=== PATIENT | male | born 1950 | race Caucasian/White ===

== ENCOUNTER 2019-12-24 09:29 | Day surgery (SDC) | payer OTHER ==
--- OUTSIDE RECORDS SUMMARY | 2019-12-24 09:35 | XMS REPORT | Continuity of Care Document ---
:1950 Author Organization [facility] t Address [address] [place] [address] Care Team Providers Name Role Phone Unavailable Unavailable Unavailable Payers Payer Name Policy Type Policy Number Effective Date Expiration Date S ource Problems This patient has no known problems. Allergies, Adverse Reactions, Alerts Allergy Allergy Status Severity Reaction(s) Onset Inactive Treating Comm ents Source Name Type Date Date Clinician hydrocod DA Active U [facility] one 09-21 [place] 00:00: [facility] 00 are [facility] Medications This patient has no known medications. Procedures This patient has no known procedures. Results Test Description Test Time Test Comments Results Result [facility] e Comments SURGICAL 2019-10-01 SPECIMENS 15:07:00 RUN DATE: 10/01/19 [facility] - LAB PAGE 1 RUN TIME: 1507 Specimen Inquiry RUN USER: INTERFACE PATIENT: MONICA SAGASTUME LOC: Rod5N POD B U #: [id number] AGE/SX: 69/M ROOM: [facility] RE09/28/19REG DR: Franklin Brown MD : 51 BED: 1 DIS: 09/30/19 STATUS: DIS IN TLOC: SPEC #: [id number] RECD: 09/28/19 STATUS: CONNIE REQ #: [id number] SHINE: 09/28/[address]: Franklin Brown MD ENTERED: 09/28/191648 SP TYPE: SURG OTHR DR: ORDERED: PATHGM4/4, PATHGM6, PATH SPEC, H E STAIN/5, FROZEN EA ADDTL, FROZEN SECT , GMS/2 HISTOLOGY: TISSUE ID BLK PCS JOAN LEV / PROCEDURE DISPOSITION ____ ___ ___ ___ ___ OMENTUM A 2 1 RECTAL BX B 1 1 OMENTUM C 4 1 OMENTUM D 3 1 RECTAL BX E 35 1 TISSUES: A. OMENTUM BIOPSY - Omental Biopsy (Frozen) B. RECTAL BX - Spenic Node (Frozen) C. OMENTUM BIOPSY - Messenteric Biopsy (Frozen) D. OMENTUM BIOPSY - Omentum(Permanent) E. RECTAL BX - Rectal Cancer (Permanent) CLINICAL HISTORY Rectal Cancer FINAL DIAGNOSIS A-OMENTUM, BIOPSY: - Omentum with fibrosis and chronic inflammation. - Negative for malignancy. B-SPLENIC NODULE, BIOPSY: - Dense fibrous tissue, suggestive of scar. - GMS stain negative for fungal elements. - Negative for malignancy. C-MESENTERY, BIOPSY: - Benign adipose tissue with fat necrosis. - GMS stain negative for fungal elements. - One benign lymph node. - Negative for malignancy. D-OMENTUM, BIOPSY: - Omentum with fibrosis and chronic inflammation. - Negative for malignancy. E-COLON, RECTOSIGMOID, LOW ANTERIOR RESECTION: CONTINUED ON NEXT PAGE RUN DATE: 10/01/19 [facility] - LAB PAGE 2 RUN TIME: 1507 Specimen Inquiry RUN USER: INTERFACE SPEC #: [id number] PATIENT: MONICA SAGASTUME #[id number] (Continued) --- FINAL DIAGNOSIS (Continued) - Invasive well-differentiated adenocarcinoma. - Straddles the anterior peritoneal reflection. - 6.0 cm in greatest dimension. - Tumor invades through the muscularis propria into pericolorectal adipose tissue. - Margins, negative for carcinoma or dysplasia, 0.5 cm from open proximal margin. - Negative for lymph vascular invasion. - Thirty lymph nodes, negative for metastatic carcinoma (0/30). - Anastomotic rings, unremarkable colonic mucosa, negative for dysplasia or malignancy. - Immunohistochemistry for MMR proteins will be performed and results reported in an addendum. INTRAOPERATIVE DIAGNOSIS AFS1-FSA2: Omentum, biopsy: - Adipose tissue with fibrosis and inflammation, negative for metastatic carcinoma on suboptimal sections. BFS1: SPLENIC NODULE, EXCISION: - Fibrosis and inflammation, negative for metastatic carcinoma. CFS1: MESENTERY, BIOPSY: - Adipose tissue with fibrosis and inflammation, negative for metastatic carcinoma on suboptimal sections. These results were reported to Dr. Brown at 10:[address] Gray. GROSS DESCRIPTION A-OMENTUM BIOPSY: Received fresh for intraoperative consultation and labeled "omentum biopsy" are three portions of phillips-yellow adipose tissue (2.5 x 1.5 x 0.5 cm, 1.5 x 1.0 x 0.5 cm and 1.0 x 1.0 x 0.3 cm). The first portion is bisected to reveal lobulated yellow adipose tissue with no lesions grossly identified. One touch prep is made. The specimen is entirely submitted for frozen section in cassette FSA1. The second and third portions of adipose tissue are unremarkable lobulated adipose tissue. One touch prep is made, and these two specimens are entirely submitted in FSA2. B-SPLENIC NODULE: Received fresh for intraoperative consultation and labeled "splenic nodule" is a nodular portion of soft tissue measuring 0.2 cm in diameter. One touch prep is made, and the specimen is entirely submitted for frozen section in cassette FSB1. C-MESENTERIC BIOPSY: Received fresh for intraoperative consultation and labeled "mesenteric biopsy" is a single portion of yellow lobulated adipose tissue (3.0 x 2.0 x 0.7 cm). The specimen is sectioned to reveal vessels with an area of nodularity surrounding the vessel. The area is submitted for frozen section in FSC1. The remainder of the specimen is submitted for permanent in casette C2-C4. CONTINUED ON NEXT PAGE RUN DATE: 10/01/19 [facility] - LAB PAGE 3 RUN TIME: 1507 Specimen Inquiry RUN USER: INTERFACE SPEC #: [id number] PATIENT: MONICA SAGASTUME #[id number] (Continued) --- GROSS DESCRIPTION (Continued) D-OMENTUM: Received in formalin labeled "omentum" is a portion of lobulated phillips-yellow adipose tissue (1.0 x 2.0 x 0.5 cm). There is a firm phillips-pink nodular area that measures 0.3 cm in diameter. Additionally, there is an ill-defined area of phillips-white fibrosis which measures 1.6 x 0.6 cm. No other masses or lesions are seen. The specimen is entirely submitted. Section Code: D1, nodule and area of fibrosis D2-D3, remainder of specimen E. Received in formalin and labeled "rectal cancer" is a segment of upper rectum/colon (6.0 cm length x 3.0 cm diameter) with attached fat and blood vessels (26 cm length x 2.5 cm x 1.0 cm). There is a small portion of attached bowel to the fat (2.5 x 1.0 cm). The specimen is received with the proximal end opened and the distal end stapled. Located 0.3 cm from the open margin and 3.0 cm from the staple line margin near the level of the peritoneal reflection is an oval-shaped mass with a raised border and a central area of depression which measures 6.0 x 4.0 cm. One edge of the tumor is distinctly polypoid and extends 1.5 cm up from the surrounding colonic surface. On cut surface, the central portion of the tumor invades through the muscularis propria and into the perirectal adipose tissue. The invasive tumor is far away from the radial margin. The mesorectum is partially intact and partially disrupted. A separate portion of disrupted bowel with attached fat (9.0 cm length x 2.0 cm diameter) is also present. The mucosal surface is phillips-pink and unremarkable. Also received is a stapled C-shaped portion of colonic mucosa (6.0 cm length x 1.0 cm width) and an anastomotic ring with a blue suture (2.3 cm diameter x 1.0 cm length). Both the staple line and suture are removed and the remaining colonic mucosa is unremarkable. Numerous possible lymph nodes are identified within the adipose tissue. [employer] sections are submitted. INK CODE: Black - intact radial margin Blue - disrupted radial margin Green - proximal open margin SECTION CODE: E1-E2 - distal stapled margin, en face E3-E4 - open proximal margin, perpendicular sections to closest tumor E5-E11 - sections of mass E12 - uninvolved colonic mucosa E13 - six lymph nodes E14 - four lymph nodes CONTINUED ON NEXT PAGE RUN DATE: 10/01/19 [facility] - LAB PAGE 4 RUN TIME: 1507 Specimen Inquiry RUN USER: INTERFACE SPEC #: [id number] PATIENT: MONICA SAGASTUME #[id number] (Continued) --- GROSS DESCRIPTION (Continued) E15 - five lymph nodes E16 - three portions of fat with possible lymph nodes E17-E18 - two lymph nodes bisected, one inked green in each cassette E19-E22 - one lymph node in each cassette E23 - five lymph nodes E24 - seven lymph nodes E25 - four lymph nodes E26-E29 - two lymph nodes bisected, one inked green in each cassette E30-E31 - one lymph node in each cassette E32 - separate portion of bowel adherent to fat E33-E34 - anastomotic ring with suture, entirely submitted E35 - stapled C-shaped portion of bowel, entirely submitted HLH/eb MICROSCOPIC DESCRIPTION Microscopic examination performed. SYNOPTIC REPORT PROCEDURE: Low anterior resection. TUMOR SITE: Rectosigmoid. TUMOR LOCATION: Straddles the anterior peritoneal reflection. TUMOR SIZE: 6 cm in greatest dimension. MACROSCOPIC TUMOR PERFORATION: Not identified. MACROSCOPIC EVALUATION OF MESORECTUM: Nearly complete. HISTOLOGIC TYPE: Adenocarcinoma. HISTOLOGIC GRADE: Grade 1, well-differentiated. TUMOR EXTENSION: Tumor invades through muscularis propria into pericolorectal tissue. MARGINS: All margins are uninvolved by invasive carcinoma, high-grade dysplasia/intramucosal carcinoma, and low-grade dysplasia. 0.5 cm from closest proximal margin. MARGINS EXAMINED: Proximal, distal, radial. TREATMENT EFFECT: No known presurgical therapy. LYMPHOVASCULAR INVASION: Not identified. PERINEURAL INVASION: Not identified. TUMOR DEPOSITS: Not identified. REGIONAL LYMPH NODES: Negative for metastatic carcinoma. NUMBER OF LYMPH NODES INVOLVED: 0. NUMBER OF LYMPH NODES EXAMINED: Thirty-one (31). TNM DESCRIPTORS: Not applicable. PRIMARY TUMOR: pT3. REGIONAL LYMPH NODES: pN0. DISTANT METASTASIS: None known. ANCILLARY STUDIES: Immunohistochemistry for mismatch repair proteins will be performed and results reported in an addendum. CONTINUED ON NEXT PAGE RUN DATE: 10/01/19 [facility] - LAB PAGE 5 RUN TIME: 1507 Specimen Inquiry RUN USER: INTERFACE SPEC #: [id number] PATIENT: MONICA SAGASTUME CHRISTO #[id number] (Continued) --- Signed SIGNATURE ON FILE Ирина Gray 10/01/19 1507 END OF REPORT SURGICAL 2019-10-01 SPECIMENS 15:07:00 RUN DATE: 10/22/19 [facility] - LAB PAGE 1 RUN TIME: 847 Specimen Inquiry RUN USER: INTERFACE PATIENT: MONICA SAGASTUME [facility] U #: [id number] AGE/SX: 69/M ROOM: [facility] RE09/28/19REG DR: Franklin Brown MD : 51 BED: 1 DIS: 09/30/19 STATUS: DIS IN TLOC: SPEC #: [id number] RECD: 09/28/19 STATUS: CONNIE BARRON #: [id number] SHINE: 09/28/[address] [facility] [address]: Franklin Brown MD ENTERED: 09/28/19 SP TYPE: SURG OTHR DR: ORDERED: PATHGM4/4, PATHGM6, PATH SPEC, H E STAIN/5, FROZEN EA ADDTL, FROZEN SECT , GMS/ HISTOLOGY: TISSUE ID BLK PCS JOAN LEV / PROCEDURE DISPOSITION ____ ___ ___ ___ ___ OMENTUM A 2 1 RECTAL BX B 1 1 OMENTUM C 4 1 OMENTUM D 3 1 RECTAL BX E 35 1 TISSUES: A. OMENTUM BIOPSY - Omental Biopsy (Frozen) B. RECTAL BX - Spenic Node (Frozen) C. OMENTUM BIOPSY - Messenteric Biopsy (Frozen) D. OMENTUM BIOPSY - Omentum(Permanent) E. RECTAL BX - Rectal Cancer (Permanent) ADDENDUM FINDINGS Addendum #1 Entered: 10/22/19 The purpose of this addendum is to report results of mismatch repair protein immunohistochemistry performed on block E8. For complete results, please see corresponding Integrated Oncology Report ([id number]). 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 Addendum Signed SIGNATURE ON FILE Ирина Gray Suzan 10/22/19 0848 CONTINUED ON NEXT PAGE RUN DATE: 10/22/19 [facility] - LAB PAGE 2 RUN TIME: 847 Specimen Inquiry RUN USER: INTERFACE SPEC #: [id number] PATIENT: MONICA SAGASTUME #[id number] (Continued) --- CLINICAL HISTORY Rectal Cancer FINAL DIAGNOSIS A-OMENTUM, BIOPSY: - Omentum with fibrosis and chronic inflammation. - Negative for malignancy. B-SPLENIC NODULE, BIOPSY: - Dense fibrous tissue, suggestive of scar. - GMS stain negative for fungal elements. - Negative for malignancy. C-MESENTERY, BIOPSY: - Benign adipose tissue with fat necrosis. - GMS stain negative for fungal elements. - One benign lymph node. - Negative for malignancy. D-OMENTUM, BIOPSY: - Omentum with fibrosis and chronic inflammation. - Negative for malignancy. E-COLON, RECTOSIGMOID, LOW ANTERIOR RESECTION: - Invasive well-differentiated adenocarcinoma. - Straddles the anterior peritoneal reflection. - 6.0 cm in greatest dimension. - Tumor invades through the muscularis propria into pericolorectal adipose tissue. - Margins, negative for carcinoma or dysplasia, 0.5 cm from open proximal margin. - Negative for lymph vascular invasion. - Thirty lymph nodes, negative for metastatic carcinoma (0/30). - Anastomotic rings, unremarkable colonic mucosa, negative for dysplasia or malignancy. - Immunohistochemistry for MMR proteins will be performed and results reported in an addendum. INTRAOPERATIVE DIAGNOSIS AFS1-FSA2: Omentum, biopsy: - Adipose tissue with fibrosis and inflammation, negative for metastatic carcinoma on suboptimal sections. BFS1: SPLENIC NODULE, EXCISION: - Fibrosis and inflammation, negative for metastatic carcinoma. CFS1: MESENTERY, BIOPSY: - Adipose tissue with fibrosis and inflammation, negative for metastatic carcinoma on suboptimal sections. CONTINUED ON NEXT PAGE RUN DATE: 10/22/19 [facility] - LAB PAGE 3 RUN TIME: 847 Specimen Inquiry RUN USER: INTERFACE SPEC #: [id number] PATIENT: MONICA SAGASTUME #[id number] (Continued) --- INTRAOPERATIVE DIAGNOSIS (Continued) These results were reported to Dr. Brown at 10:[address] Holtorf. GROSS DESCRIPTION A-OMENTUM BIOPSY: Received fresh for intraoperative consultation and labeled "omentum biopsy" are three portions of phillips-yellow adipose tissue (2.5 x 1.5 x 0.5 cm, 1.5 x 1.0 x 0.5 cm and 1.0 x 1.0 x 0.3 cm). The first portion is bisected to reveal lobulated yellow adipose tissue with no lesions grossly identified. One touch prep is made. The specimen is entirely submitted for frozen section in cassette FSA1. The second and third portions of adipose tissue are unremarkable lobulated adipose tissue. One touch prep is made, and these two specimens are entirely submitted in FSA2. B-SPLENIC NODULE: Received fresh for intraoperative consultation and labeled "splenic nodule" is a nodular portion of soft tissue measuring 0.2 cm in diameter. One touch prep is made, and the specimen is entirely submitted for frozen section in cassette FSB1. C-MESENTERIC BIOPSY: Received fresh for intraoperative consultation and labeled "mesenteric biopsy" is a single portion of yellow lobulated adipose tissue (3.0 x 2.0 x 0.7 cm). The specimen is sectioned to reveal vessels with an area of nodularity surrounding the vessel. The area is submitted for frozen section in FSC1. The remainder of the specimen is submitted for permanent in casette C2-C4. D-OMENTUM: Received in formalin labeled "omentum" is a portion of lobulated phillips-yellow adipose tissue (1.0 x 2.0 x 0.5 cm). There is a firm phillips-pink nodular area that measures 0.3 cm in diameter. Additionally, there is an ill-defined area of phillips-white fibrosis which measures 1.6 x 0.6 cm. No other masses or lesions are seen. The specimen is entirely submitted. Section Code: D1, nodule and area of fibrosis D2-D3, remainder of specimen E. Received in formalin and labeled "rectal cancer" is a segment of upper rectum/colon (6.0 cm length x 3.0 cm diameter) with attached fat and blood vessels (26 cm length x 2.5 cm x 1.0 cm). There is a small portion of attached bowel to the fat (2.5 x 1.0 cm). The specimen is received with the proximal end opened and the distal end stapled. Located 0.3 cm from the open margin and 3.0 cm from the staple line margin near the level of the peritoneal reflection is an oval-shaped mass with a raised border and a central area of depression which measures 6.0 x 4.0 cm. One edge of the tumor is distinctly polypoid and extends 1.5 cm up from the surrounding colonic surface. On cut surface, the central portion of the tumor invades through the muscularis propria and into the perirectal adipose tissue. The invasive tumor is far away from the radial margin. The mesorectum is partially intact and partially disrupted. CONTINUED ON NEXT PAGE RUN DATE: 10/22/19 [facility] - LAB PAGE 4 RUN TIME: 847 Specimen Inquiry RUN USER: INTERFACE SPEC #: [id number] PATIENT: MONICA SAGASTUME CHRISTO #[id number] (Continued) --- GROSS DESCRIPTION (Continued) A separate portion of disrupted bowel with attached fat (9.0 cm length x 2.0 cm diameter) is also present. The mucosal surface is phillips-pink and unremarkable. Also received is a stapled C-shaped portion of colonic mucosa (6.0 cm length x 1.0 cm width) and an anastomotic ring with a blue suture (2.3 cm diameter x 1.0 cm length). Both the staple line and suture are removed and the remaining colonic mucosa is unremarkable. Numerous possible lymph nodes are identified within the adipose tissue. [employer] sections are submitted. INK CODE: Black - intact radial margin Blue - disrupted radial margin Green - proximal open margin SECTION CODE: E1-E2 - distal stapled margin, en face E3-E4 - open proximal margin, perpendicular sections to closest tumor E5-E11 - sections of mass E12 - uninvolved colonic mucosa E13 - six lymph nodes E14 - four lymph nodes E15 - five lymph nodes E16 - three portions of fat with possible lymph nodes E17-E18 - two lymph nodes bisected, one inked green in each cassette E19-E22 - one lymph node in each cassette E23 - five lymph nodes E24 - seven lymph nodes E25 - four lymph nodes E26-E29 - two lymph nodes bisected, one inked green in each cassette E30-E31 - one lymph node in each cassette E32 - separate portion of bowel adherent to fat E33-E34 - anastomotic ring with suture, entirely submitted E35 - stapled C-shaped portion of bowel, entirely submitted HLH/eb MICROSCOPIC DESCRIPTION Microscopic examination performed. SYNOPTIC REPORT PROCEDURE: Low anterior resection. TUMOR SITE: Rectosigmoid. TUMOR LOCATION: Straddles the anterior peritoneal reflection. TUMOR SIZE: 6 cm in greatest dimension. CONTINUED ON NEXT PAGE RUN DATE: 10/22/19 [facility] - LAB PAGE 5 RUN TIME: 847 Specimen Inquiry RUN USER: INTERFACE SPEC #: [id number] PATIENT: MONICA SAGASTUME #[id number] (Continued) --- SYNOPTIC REPORT (Continued) MACROSCOPIC TUMOR PERFORATION: Not identified. MACROSCOPIC EVALUATION OF MESORECTUM: Nearly complete. HISTOLOGIC TYPE: Adenocarcinoma. HISTOLOGIC GRADE: Grade 1, well-differentiated. TUMOR EXTENSION: Tumor invades through muscularis propria into pericolorectal tissue. MARGINS: All margins are uninvolved by invasive carcinoma, high-grade dysplasia/intramucosal carcinoma, and low-grade dysplasia. 0.5 cm from closest proximal margin. MARGINS EXAMINED: Proximal, distal, radial. TREATMENT EFFECT: No known presurgical therapy. LYMPHOVASCULAR INVASION: Not identified. PERINEURAL INVASION: Not identified. TUMOR DEPOSITS: Not identified. REGIONAL LYMPH NODES: Negative for metastatic carcinoma. NUMBER OF LYMPH NODES INVOLVED: 0. NUMBER OF LYMPH NODES EXAMINED: Thirty-one (31). TNM DESCRIPTORS: Not applicable. PRIMARY TUMOR: pT3. REGIONAL LYMPH NODES: pN0. DISTANT METASTASIS: None known. ANCILLARY STUDIES: Immunohistochemistry for mismatch repair proteins will be performed and results reported in an addendum. - Signed SIGNATURE ON FILE DaniloPasha hahninna Mares 10/01/19 1507 END OF REPORT SURGICAL 2019-10-01 SPECIMENS 15:07:00 RUN DATE: 12/16/19 [facility] - LAB PAGE 1 RUN TIME: 1159 Specimen Inquiry RUN USER: INTERFACE PATIENT: MONICA SAGASTUME LOC: [facility] B U #: [id number] AGE/SX: 69/M ROOM: [facility] RE09/28/19[facility] DR: Franklin Brown MD : 51 BED: 1 DIS: 09/30/19 STATUS: DIS IN TLOC: SPEC #: [id number] RECD: 09/28/19-0901 STATUS: CONNIE RERe #: [id number] SHINE: 09/28/19-[address]: Franklin Brown MD ENTERED: 09/28/195598 SP TYPE: SURG OTHR DR: ORDERED: PATHGM4/4, PATHGM6, PATH SPEC, H E STAIN/5, FROZEN EA ADDTL, FROZEN SECT , / HISTOLOGY: TISSUE ID BLK PCS JOAN LEV / PROCEDURE DISPOSITION ____ ___ ___ ___ ___ OMENTUM A 2 1 RECTAL BX B 1 1 OMENTUM C 4 1 OMENTUM D 3 1 RECTAL BX E 35 1 TISSUES: A. OMENTUM BIOPSY - Omental Biopsy (Frozen) B. RECTAL BX - Spenic Node (Frozen) C. OMENTUM BIOPSY - Messenteric Biopsy (Frozen) D. OMENTUM BIOPSY - Omentum(Permanent) E. RECTAL BX - Rectal Cancer (Permanent) ADDENDUM FINDINGS Addendum #2 Entered: 12/16/190165 The addendum is to document additional information per the request of the patient's radiation oncologist, Dr. Evans. Per the request of , selected sections of the tumor were reviewed to evaluate the extent of pericolonic soft tissue invasion. The tumor is invading slightly more than 2 mm from the nearest outer border of the muscularis propria. These findings were discussed with Dr. Evans on December 16, 2019 at 9:10 a.m. Addendum Signed SIGNATURE ON FILE KavonreGustavoDalton grimaldoese 12/16/19 1159 Addendum #1 Entered: 10/22/194782 The purpose of this addendum is to report results of mismatch repair protein immunohistochemistry performed on block E8. For complete results, please see corresponding Integrated Oncology Report ([id number]). DIAGNOSIS: CONTINUED ON NEXT PAGE RUN DATE: 12/16/19 [facility] - LAB PAGE 2 RUN TIME: 1159 Specimen Inquiry RUN USER: INTERFACE SPEC #: [id number] PATIENT: MONICA SAGASTUME #[id number] (Continued) --- ADDENDUM FINDINGS (Continued) MLH1 - expressed MSH2 - expressed MSH6 - expressed PMS2 global - expressed These results show no deficiency of the mismatch repair proteins tested. Addendum Signed SIGNATURE ON FILE Ирина Gray 10/22/19 0848 CLINICAL HISTORY Rectal Cancer FINAL DIAGNOSIS A-OMENTUM, BIOPSY: - Omentum with fibrosis and chronic inflammation. - Negative for malignancy. B-SPLENIC NODULE, BIOPSY: - Dense fibrous tissue, suggestive of scar. - GMS stain negative for fungal elements. - Negative for malignancy. C-MESENTERY, BIOPSY: - Benign adipose tissue with fat necrosis. - GMS stain negative for fungal elements. - One benign lymph node. - Negative for malignancy. D-OMENTUM, BIOPSY: - Omentum with fibrosis and chronic inflammation. - Negative for malignancy. E-COLON, RECTOSIGMOID, LOW ANTERIOR RESECTION: - Invasive well-differentiated adenocarcinoma. - Straddles the anterior peritoneal reflection. - 6.0 cm in greatest dimension. - Tumor invades through the muscularis propria into pericolorectal adipose tissue. - Margins, negative for carcinoma or dysplasia, 0.5 cm from open proximal margin. - Negative for lymph vascular invasion. - Thirty lymph nodes, negative for metastatic carcinoma (0/30). - Anastomotic rings, unremarkable colonic mucosa, negative for dysplasia or malignancy. - Immunohistochemistry for MMR proteins will be performed and results reported in an CONTINUED ON NEXT PAGE RUN DATE: 12/16/19 [facility] - LAB PAGE 3 RUN TIME: 1159 Specimen Inquiry RUN USER: INTERFACE SPEC #: [id number] PATIENT: MONICA SAGASTUME #[id number] (Continued) --- FINAL DIAGNOSIS (Continued) addendum. INTRAOPERATIVE DIAGNOSIS AFS1-FSA2: Omentum, biopsy: - Adipose tissue with fibrosis and inflammation, negative for metastatic carcinoma on suboptimal sections. BFS1: SPLENIC NODULE, EXCISION: - Fibrosis and inflammation, negative for metastatic carcinoma. CFS1: MESENTERY, BIOPSY: - Adipose tissue with fibrosis and inflammation, negative for metastatic carcinoma on suboptimal sections. These results were reported to Dr. Brown at 10:[address] Gray. GROSS DESCRIPTION A-OMENTUM BIOPSY: Received fresh for intraoperative consultation and labeled "omentum biopsy" are three portions of phillips-yellow adipose tissue (2.5 x 1.5 x 0.5 cm, 1.5 x 1.0 x 0.5 cm and 1.0 x 1.0 x 0.3 cm). The first portion is bisected to reveal lobulated yellow adipose tissue with no lesions grossly identified. One touch prep is made. The specimen is entirely submitted for frozen section in cassette FSA1. The second and third portions of adipose tissue are unremarkable lobulated adipose tissue. One touch prep is made, and these two specimens are entirely submitted in FSA2. B-SPLENIC NODULE: Received fresh for intraoperative consultation and labeled "splenic nodule" is a nodular portion of soft tissue measuring 0.2 cm in diameter. One touch prep is made, and the specimen is entirely submitted for frozen section in cassette FSB1. C-MESENTERIC BIOPSY: Received fresh for intraoperative consultation and labeled "mesenteric biopsy" is a single portion of yellow lobulated adipose tissue (3.0 x 2.0 x 0.7 cm). The specimen is sectioned to reveal vessels with an area of nodularity surrounding the vessel. The area is submitted for frozen section in FSC1. The remainder of the specimen is submitted for permanent in casette C2-C4. D-OMENTUM: Received in formalin labeled "omentum" is a portion of lobulated phillips-yellow adipose tissue (1.0 x 2.0 x 0.5 cm). There is a firm phillips-pink nodular area that measures 0.3 cm in diameter. Additionally, there is an ill-defined area of phillips-white fibrosis which measures 1.6 x 0.6 cm. No other masses or lesions are seen. The specimen is entirely submitted. Section Code: D1, nodule and area of fibrosis D2-D3, remainder of specimen CONTINUED ON NEXT PAGE RUN DATE: 12/16/19 [facility] - LAB PAGE 4 RUN TIME: 1159 Specimen Inquiry RUN USER: INTERFACE SPEC #: [id number] PATIENT: MONICA SAGASTUME CHRISTO #[id number] (Continued) --- GROSS DESCRIPTION (Continued) E. Received in formalin and labeled "rectal cancer" is a segment of upper rectum/colon (6.0 cm length x 3.0 cm diameter) with attached fat and blood vessels (26 cm length x 2.5 cm x 1.0 cm). There is a small portion of attached bowel to the fat (2.5 x 1.0 cm). The specimen is received with the proximal end opened and the distal end stapled. Located 0.3 cm from the open margin and 3.0 cm from the staple line margin near the level of the peritoneal reflection is an oval-shaped mass with a raised border and a central area of depression which measures 6.0 x 4.0 cm. One edge of the tumor is distinctly polypoid and extends 1.5 cm up from the surrounding colonic surface. On cut surface, the central portion of the tumor invades through the muscularis propria and into the perirectal adipose tissue. The invasive tumor is far away from the radial margin. The mesorectum is partially intact and partially disrupted. A separate portion of disrupted bowel with attached fat (9.0 cm length x 2.0 cm diameter) is also present. The mucosal surface is phillips-pink and unremarkable. Also received is a stapled C-shaped portion of colonic mucosa (6.0 cm length x 1.0 cm width) and an anastomotic ring with a blue suture (2.3 cm diameter x 1.0 cm length). Both the staple line and suture are removed and the remaining colonic mucosa is unremarkable. Numerous possible lymph nodes are identified within the adipose tissue. [employer] sections are submitted. INK CODE: Black - intact radial margin Blue - disrupted radial margin Green - proximal open margin SECTION CODE: E1-E2 - distal stapled margin, en face E3-E4 - open proximal margin, perpendicular sections to closest tumor E5-E11 - sections of mass E12 - uninvolved colonic mucosa E13 - six lymph nodes E14 - four lymph nodes E15 - five lymph nodes E16 - three portions of fat with possible lymph nodes E17-E18 - two lymph nodes bisected, one inked green in each cassette E19-E22 - one lymph node in each cassette E23 - five lymph nodes E24 - seven lymph nodes E25 - four lymph nodes E26-E29 - two lymph nodes bisected, one inked green in each cassette E30-E31 - one lymph node in each cassette E32 - separate portion of bowel adherent to fat CONTINUED ON NEXT PAGE RUN DATE: 12/16/19 [facility] - LAB PAGE 5 RUN TIME: 1159 Specimen Inquiry RUN USER: INTERFACE SPEC #: [id number] PATIENT: MONICA SAGASTUME #[id number] (Continued) --- GROSS DESCRIPTION (Continued) E33-E34 - anastomotic ring with suture, entirely submitted E35 - stapled C-shaped portion of bowel, entirely submitted HLH/eb MICROSCOPIC DESCRIPTION Microscopic examination performed. SYNOPTIC REPORT PROCEDURE: Low anterior resection. TUMOR SITE: Rectosigmoid. TUMOR LOCATION: Straddles the anterior peritoneal reflection. TUMOR SIZE: 6 cm in greatest dimension. MACROSCOPIC TUMOR PERFORATION: Not identified. MACROSCOPIC EVALUATION OF MESORECTUM: Nearly complete. HISTOLOGIC TYPE: Adenocarcinoma. HISTOLOGIC GRADE: Grade 1, well-differentiated. TUMOR EXTENSION: Tumor invades through muscularis propria into pericolorectal tissue. MARGINS: All margins are uninvolved by invasive carcinoma, high-grade dysplasia/intramucosal carcinoma, and low-grade dysplasia. 0.5 cm from closest proximal margin. MARGINS EXAMINED: Proximal, distal, radial. TREATMENT EFFECT: No known presurgical therapy. LYMPHOVASCULAR INVASION: Not identified. PERINEURAL INVASION: Not identified. TUMOR DEPOSITS: Not identified. REGIONAL LYMPH NODES: Negative for metastatic carcinoma. NUMBER OF LYMPH NODES INVOLVED: 0. NUMBER OF LYMPH NODES EXAMINED: Thirty-one (31). TNM DESCRIPTORS: Not applicable. PRIMARY TUMOR: pT3. REGIONAL LYMPH NODES: pN0. DISTANT METASTASIS: None known. ANCILLARY STUDIES: Immunohistochemistry for mismatch repair proteins will be performed and results reported in an addendum. - Signed SIGNATURE ON FILE Ирина Gray 10/01/19 1507 END OF REPORT BASIC METABOLIC PANEL 2019-09-30 05:24:00 Test Item Value Reference Range Interpretation Comme nts SODIUM (test code = NA) 138 MMOL/L 136-143 N POTASSIUM (test code = K) 4.3 MMOL/L 3.5-5.1 N CHLORIDE (test code = CL) 105 MMOL/L 98-107 N CARBON DIOXIDE (test code = 24 mmol/L 24-31 N CO2) GLUCOSE (test code = GLU) 101 mg/dL 70-104 N BLOOD UREA NITROGEN (test 9.7 MG/DL 7.0-21.0 N code = BUN) GLOMERULAR FILTRATION RATE >=60 max estimate >60 The estimated glomerular (test code = GFR) filtration rate is computed usingpatient ra ce, age (>18), sex, and serum creatinine. If anyof the neede d data elements are mi ssing the Laboratory yissel ot compute an estimation of t he glomerular filtration rate . CREATININE (test code = 1.1 mg/dL 0.8-1.5 N CREAT) CALCIUM (test code = CA) 9.0 mg/dL 8.8-10.2 N [id number] 05:24:00 Test Item Value Reference Range Interpretation Comments MAGNESIUM (test code = MAG) 1.9 mg/dL 1.4-2.6 N CBC W/AUTO [id number] 05:14:00 Test Item Value Reference Range Interpretation Comments WHITE BLOOD CELL (test code = 6.5 x10 3/uL 4.8-10.8 N WBC) RED BLOOD CELL (test code = 4.20 x10 6/uL 4.70-6.10 L RBC) HEMOGLOBIN (test code = HGB) 12.1 g/dL 14.5-20 L HEMATOCRIT (test code = HCT) 39.0 % 42.0-52.0 L MEAN CELL VOLUME (test code = 92.9 fL 80.0-94.0 N MCV) MEAN CELL HGB (test code = MCH) 28.8 pg 27-31 N MEAN CELL HGB CONCENTRATION 31.0 G/DL 33-36.5 L (test code = MCHC) RED CELL DISTRIBUTION WIDTH 14.8 % 12.9-16.9 N (test code = RDW) PLATELET COUNT (test code = 164 150-440 N PLT) MEAN PLATELET VOLUME (test code 10.2 fL 8.9-12.4 N = MPV) NEUTROPHIL % (test code = NT%) 69.3 % 42.2-75.2 N LYMPHOCYTE % (test code = LY%) 19.4 % 20.5-51.1 L MONOCYTE % (test code = MO%) 8.4 % 1.7-9.3 N EOSINOPHIL % (test code = EO%) 2.3 % 0.0-7.0 N BASOPHIL % (test code = BA%) 0.3 % 0-2.5 N NEUTROPHIL # (test code = NT#) 4.52 x10 3/uL 1.80-7.70 N LYMPHOCYTE # (test code = LY#) 1.27 x10 3/uL 1.00-4.80 N MONOCYTE # (test code = MO#) 0.55 x10 3/uL 0.00-0.80 N EOSINOPHIL # (test code = EO#) 0.15 x10 3/uL 0.00-0.45 N BASOPHIL # (test code = BA#) 0.02 x10 3/uL 0.0-0.20 N BASIC METABOLIC [id number] 06:40:00 Test Item Value Reference Range Interpretation Comments SODIUM (test code 140 MMOL/L 136-143 N = NA) POTASSIUM (test 4.5 MMOL/L 3.5-5.1 N code = K) CHLORIDE (test 108 MMOL/L 98-107 H code = CL) CARBON DIOXIDE 22 mmol/L 24-31 L (test code = CO2) GLUCOSE (test code 123 mg/dL 70-104 H = GLU) BLOOD UREA 12.3 MG/DL 7.0-21.0 N NITROGEN (test code = BUN) GLOMERULAR >=60 max >60 The estimated FILTRATION RATE estimate glomerular (test code = GFR) filtration rate is computed usingpatient ra ce, age (>18), sex, and serum creatinin e. If anyof the neede d data elements a re missing the Laboratory yissel ot compute an estimation of t he glomerular filtration rate . CREATININE (test 1.2 mg/dL 0.8-1.5 N code = CREAT) CALCIUM (test code 8.4 mg/dL 8.8-10.2 L = CA) [id number] 06:40:00 Test Item Value Reference Range Interpretation Comments MAGNESIUM (test code = MAG) 1.9 mg/dL 1.4-2.6 N CBC W/AUTO [id number] 06:06:00 Test Item Value Reference Range Interpretation Comments WHITE BLOOD CELL (test code = 7.4 x10 3/uL 4.8-10.8 N WBC) RED BLOOD CELL (test code = 4.32 x10 6/uL 4.70-6.10 L RBC) HEMOGLOBIN (test code = HGB) 12.6 g/dL 14.5-20 L HEMATOCRIT (test code = HCT) 40.4 % 42.0-52.0 L MEAN CELL VOLUME (test code = 93.5 fL 80.0-94.0 N MCV) MEAN CELL HGB (test code = MCH) 29.2 pg 27-31 N MEAN CELL HGB CONCENTRATION 31.2 G/DL 33-36.5 L (test code = MCHC) RED CELL DISTRIBUTION WIDTH 15.0 % 12.9-16.9 N (test code = RDW) PLATELET COUNT (test code = 171 150-440 N PLT) MEAN PLATELET VOLUME (test code 10.6 fL 8.9-12.4 N = MPV) NEUTROPHIL % (test code = NT%) 75.0 % 42.2-75.2 N LYMPHOCYTE % (test code = LY%) 13.9 % 20.5-51.1 L MONOCYTE % (test code = MO%) 9.8 % 1.7-9.3 H EOSINOPHIL % (test code = EO%) 0.3 % 0.0-7.0 N BASOPHIL % (test code = BA%) 0.5 % 0-2.5 N NEUTROPHIL # (test code = NT#) 5.51 x10 3/uL 1.80-7.70 N LYMPHOCYTE # (test code = LY#) 1.02 x10 3/uL 1.00-4.80 N MONOCYTE # (test code = MO#) 0.72 x10 3/uL 0.00-0.80 N EOSINOPHIL # (test code = EO#) 0.02 x10 3/uL 0.00-0.45 N BASOPHIL # (test code = BA#) 0.04 x10 3/uL 0.0-0.20 N CBC W/AUTO [id number] 12:29:00 Test Item Value Reference Range Interpretation Comments WHITE BLOOD CELL (test code = 6.2 x10 3/uL 4.8-10.8 N WBC) RED BLOOD CELL (test code = 4.77 x10 6/uL 4.70-6.10 N RBC) HEMOGLOBIN (test code = HGB) 13.9 g/dL 14.5-20 L HEMATOCRIT (test code = HCT) 43.1 % 42.0-52.0 N MEAN CELL VOLUME (test code = 90.4 fL 80.0-94.0 N MCV) MEAN CELL HGB (test code = MCH) 29.1 pg 27-31 N MEAN CELL HGB CONCENTRATION 32.3 G/DL 33-36.5 L (test code = MCHC) RED CELL DISTRIBUTION WIDTH 14.6 % 12.9-16.9 N (test code = RDW) PLATELET COUNT (test code = 174 150-440 N PLT) MEAN PLATELET VOLUME (test code 10.4 fL 8.9-12.4 N = MPV) NEUTROPHIL % (test code = NT%) 61.7 % 42.2-75.2 N LYMPHOCYTE % (test code = LY%) 24.3 % 20.5-51.1 N MONOCYTE % (test code = MO%) 8.1 % 1.7-9.3 N EOSINOPHIL % (test code = EO%) 4.7 % 0.0-7.0 N BASOPHIL % (test code = BA%) 1.0 % 0-2.5 N NEUTROPHIL # (test code = NT#) 3.84 x10 3/uL 1.80-7.70 N LYMPHOCYTE # (test code = LY#) 1.51 x10 3/uL 1.00-4.80 N MONOCYTE # (test code = MO#) 0.50 x10 3/uL 0.00-0.80 N EOSINOPHIL # (test code = EO#) 0.29 x10 3/uL 0.00-0.45 N BASOPHIL # (test code = BA#) 0.06 x10 3/uL 0.0-0.20 N COMPREHENSIVE METABOLIC [id number] 12:26:00 Test Item Value Reference Range Interpretation Comments SODIUM (test code = 138 MMOL/L 136-143 N NA) POTASSIUM (test code 4.4 MMOL/L 3.5-5.1 N = K) CHLORIDE (test code = 101 MMOL/L 98-107 N CL) CARBON DIOXIDE (test 27 mmol/L 24-31 N code = CO2) GLUCOSE (test code = 97 mg/dL 70-104 N GLU) BLOOD UREA NITROGEN 17.3 MG/DL 7.0-21.0 N (test code = BUN) GLOMERULAR FILTRATION 58 >60 L The es timated RATE (test code = glomerular filtration GFR) rate is compute d usingpatient ra ce, age (>18), sex, and serum creatinine. If anyof the needed data elements are mi ssing the Laboratory cannot compute an annita mation of the glomerul ar filtration rate . CREATININE (test code 1.3 mg/dL 0.8-1.5 N = CREAT) TOTAL PROTEIN (test 7.2 g/dL 6.3-8.3 N code = PROT) ALBUMIN (test code = 4.1 G/DL 3.5-5.0 N ALB) CALCIUM (test code = 9.7 mg/dL 8.8-10.2 N CA) BILIRUBIN TOTAL (test 0.3 mg/dL 0.2-1.0 N code = BILT) SGOT/AST (test code = 12 IU/L 10-34 N AST) SGPT/ALT (test code = 10 U/L 10-44 N ALT) ALKALINE PHOSPHATASE 79 U/L 45-120 N (test code = ALKP)
[2019-12-24] MEDS ORDERED: CEFAZOLIN/SWI 1gm 1 GM/10 ML SYR ONE (09:55)
[2019-12-24] MEDS ORDERED: Ringers Lactate 1,000 ML IV ONE (09:55)
[2019-12-24 10:06] LABS: Absolute Lymphocytes (CBC) 1.2 K/uL (0.7-4.9); Basophils % 0.5 % (0-1.3); Hematocrit 40.6 % (39.6-49.0); Lymphocytes % 20.9 % (15.3-44.8); MPV 8.4 fL (7.6-11.3); RBC Red Blood Cell Count 4.58 M/uL (4.33-5.43)
[2019-12-24] MEDS ORDERED: LIDOCAINE 2% MPF 5 ML VIAL ONE (13:04)
[2019-12-24] MEDS ORDERED: MIDAZOLAM HCL 2 MG/2 ML INJ ONE (13:04)
[2019-12-24] MEDS ORDERED: FENTANYL CITR 100 MCG/2 ML ONE (13:04)
[2019-12-24] MEDS ORDERED: propofoL 200 MG/20 ML VIAL IV ONE (13:04)
[2019-12-24] MEDS ORDERED: NS 0.9% VIAL 20 ML ONE (13:47)
[2019-12-24] MEDS ORDERED: HEPARIN 5000 UNIT/ML 1 ML VIAL ONE (13:48)
[2019-12-24] MEDS ORDERED: LIDOCAINE 1% 20 ML MDV ONE (13:48)
[2019-12-24] MEDS ORDERED: NS 0.9% VIAL 10 ML ONE (14:04)
[2019-12-24] MEDS ORDERED: KETOROLAC 30 MG/ML INJ ONE (14:24)
--- NOTE | 2019-12-24 14:33 | RAD REPORT ---
EXAM DESCRIPTION: RAD - Fluoroscopy <1 Hour - 12/24/2019 2:28 pm CLINICAL HISTORY: Device placement central venous catheter placement FINDINGS: A central venous catheter was placed into the superior vena cava. 3 fluoroscopic spot imag es are submitted. The examination was performed by Dr. Machuca Fluoroscopy time 0.3 minutes
[2019-12-24 15:24] VITALS: BP 136/69; O2SAT 100
--- NOTE | 2019-12-24 15:31 | RAD REPORT ---
EXAM DESCRIPTION: RADChest Single View12/24/2019 2:55 pm CLINICAL HISTORY: Device placement/central venous catheter placement IMPRESSION: Central venous catheter with its tip in the superior vena cava No pneumothorax
[2019-12-24 16:05] VITALS: TEMP 97.5
--- NOTE | 2019-12-25 01:06 | OP ---
Date of Procedure: 12/24/2019 Surgeon: Myles Machuca MD Preoperative Diagnosis: Colorectal malignancy. Postoperative Diagnosis: Colorectal malignancy. Procedure: Placement of right IJ Port-A-Cath interpretation, intraoperative fluoroscopy. Estimated Blood Loss: Minimal. Specimen: None. Findings: Normal anatomy. Anesthesia: MAC. Complications: None. Disposition: Patient tolerated the procedure in stable condition, taken to the Recovery in good gene ral condition. Procedure In Detail: Patient was brought to the OR, placed in supine position. MAC anesthesia was b egun. The patient was prepped and draped in the usual sterile fashion. Lidocaine 1% infiltrated loc ally. An 18-gauge needle was used to access the right IJ vein. Guidewire was passed and confirmed w ith fluoroscopy. A 3 cm counterincision made on the right anterior chest. Pocket created. Tunnelin g device to tunnel the catheter between the 2 wounds and then Seldinger technique used at the tip of the catheter, placed in the SVC under fluoroscopy. Cut to appropriate size, attached to the Port-A-C ath device. Port-A-Cath device was attached to the subcutaneous tissue with 3-0 Vicryl, then 3-0 chr omic used to reapproximate subcutaneous tissue and close the skin. Catheter flushed with heparin, pa cked with heparin with good blood flow. Sterile dressing was applied. Patient was awakened and take n to the Recovery in good general condition. Chest x-ray has been ordered, if negative patient will be discharged to home. Disposition: Home. Condition: Stable. Discharge Instructions: Resume home medications and diet. Activity as tolerated. No heavy lifting. Remove outer dressing in 2 days. Shower. Keep wound clean and dry. Keep Steri-Strips on at all t imes. Follow up Ultracet 1 tablet p.o. q.4 p.r.n. pain. Follow up in my office in 2 week s. Call for appointment. /MODL Voice ID: [id number] Report ID: [id number]
== END 2019-12-24 16:08 | disposition home or self-care (01) ==
LOC: OR 09:29
PROVIDERS: ATTEND Surgery
PROC: 0JH60WZ Insertion of Totally Implantable Vascular Access Device into Chest Subcutaneous Tissue and Fascia, Open Approach (ICD-10-PCS; principal; 2019-12-24 14:00)
DX: C19 Malignant neoplasm of rectosigmoid junction (principal)
CPT/HCPCS: 85025; 36415; 71045; 36561; J2704; J1644 ×2; J2250; J3010; J0690; J7120; C1788; 76000

== ENCOUNTER 2020-08-14 07:41 | Day surgery (SDC) | payer OTHER ==
[2020-08-11 15:05] LABS: Basophils % 0.7 % (0-1.3); Hematocrit 37.4 % (39.6-49.0); Lymphocytes % 16.2 % (15.3-44.8); MPV 8.4 fL (7.6-11.3); RBC Red Blood Cell Count 4.13 M/uL (4.33-5.43)
--- OUTSIDE RECORDS SUMMARY | 2020-08-14 07:43 | XMS REPORT | Continuity of Care Document ---
:1950 Author Organization [facility] t Address [address] [place] [address] Care Team Providers Name Role Phone Unavailable Unavailable Unavailable Payers Payer Name Policy Type Policy Number Effective Date Expiration Date S ource Problems This patient has no known problems. Allergies, Adverse Reactions, Alerts Allergy Allergy Status Severity Reaction(s) Onset Inactive Treating Comm ents Source Name Type Date Date Clinician hydrocod DA Active U [facility] one 09-21 [place] 00:00: [facility] 00 are [facility] Medications This patient has no known medications. Procedures This patient has no known procedures. Results Test Description Test Time Test Comments Results Result [facility] e Comments SURGICAL 2019-10-01 SPECIMENS 15:07:00 RUN DATE: 10/01/19 [facility] - LAB PAGE 1 RUN TIME: 1507 Specimen Inquiry RUN USER: INTERFACE PATIENT: MONICA SAGASTUME LOC: [facility] P[facility] B U #: [id number] AGE/SX: 69/M ROOM: [facility] RE09/28/19REG DR: Franklin Brown MD : 51 BED: 1 DIS: 09/30/19 STATUS: DIS IN TLOC: SPEC #: [id number] RECD: 09/28/19 STATUS: CONNIE REQ #: [id number] SHINE: 09/28/[address]: Franklin Brown MD ENTERED: 09/28/191326 SP TYPE: SURG OTHR DR: ORDERED: PATHGM4/4, PATHGM6, PATH SPEC, H E STAIN/5, FROZEN EA ADDTL, FROZEN SECT , GM/2 HISTOLOGY: TISSUE ID [id number] PCS JOAN LEV [...] CONTINUED ON NEXT PAGE RUN DATE: 10/01/19 [facility] - LAB PAGE 2 RUN TIME: 1507 Specimen Inquiry RUN USER: INTERFACE SPEC #: [id number] PATIENT: MONICA SAGASTUME #[id number] (Continued) --- FINAL DIAGNOSIS (Continued) - Invasive [...] CONTINUED ON NEXT PAGE RUN DATE: 10/01/19 [facility] - LAB PAGE 3 RUN TIME: 1507 Specimen Inquiry RUN USER: INTERFACE SPEC #: [id number] PATIENT: MONICA SAGASTUME #[id number] (Continued) --- GROSS DESCRIPTION (Continued) D-OMENTUM: Received [...] nodes are identified within the adipose tissue. [employer] Treating Assistant sections are submitted. INK CODE: Black - [...] CONTINUED ON NEXT PAGE RUN DATE: 10/01/19 [facility] - LAB PAGE 4 RUN TIME: 1507 Specimen Inquiry RUN USER: INTERFACE SPEC #: [id number] PATIENT: MONICA SAGASTUME #[id number] (Continued) --- GROSS DESCRIPTION (Continued) E15 - [...] CONTINUED ON NEXT PAGE RUN DATE: 10/01/19 [facility] - LAB PAGE 5 RUN TIME: 1507 Specimen Inquiry RUN USER: INTERFACE SPEC #: [id number] PATIENT: MONICA SAGASTUME CHRISTO #[id number] (Continued) --- Signed SIGNATURE ON FILE Ирина Gray 10/01/19 1507 END OF REPORT SURGICAL 2019-10-01 SPECIMENS 15:07:00 RUN DATE: 10/22/19 [facility] - LAB PAGE 1 RUN TIME: 847 Specimen Inquiry RUN USER: INTERFACE PATIENT: MONICA SAGASTUME [facility] #: [id number] AGE/SX: 69/M ROOM: P0575 RE09/28/19REG DR: Franklin Brown MD : 51 BED: 1 DIS: 09/30/19 STATUS: DIS IN TLOC: SPEC #: [id number] RECD: 09/28/19 STATUS: CONNIE BARRON #: [id number] SHINE: 09/28/19 [facility] DR: Franklin Brown MD ENTERED: [...] results, please see corresponding Integrated Oncology Report ([id number]). 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 Addendum Signed SIGNATURE ON FILE Ирина Gray Suzan 10/22/19 0848 CONTINUED ON NEXT PAGE RUN DATE: 10/22/19 [facility] - LAB PAGE 2 RUN TIME: 847 Specimen Inquiry RUN USER: INTERFACE SPEC #: [id number] PATIENT: MONICA SAGASTUME #[id number] (Continued) --- CLINICAL HISTORY Rectal Cancer FINAL [...] CONTINUED ON NEXT PAGE RUN DATE: 10/22/19 [facility] - LAB PAGE 3 RUN TIME: 847 Specimen Inquiry RUN USER: INTERFACE SPEC #: [id number] PATIENT: MONICA SAGASTUME #[id number] (Continued) --- INTRAOPERATIVE DIAGNOSIS (Continued) These results [...] CONTINUED ON NEXT PAGE RUN DATE: 10/22/19 [facility] - LAB PAGE 4 RUN TIME: 847 Specimen Inquiry RUN USER: INTERFACE SPEC #: [id number] PATIENT: MONICA SAGASTUME CHRISTO #[id number] (Continued) --- GROSS DESCRIPTION (Continued) A separate [...] nodes are identified within the adipose tissue. Starch Treating Assistant sections are submitted. INK CODE: Black - [...] CONTINUED ON NEXT PAGE RUN DATE: 10/22/19 [facility] - LAB PAGE 5 RUN TIME: 847 Specimen Inquiry RUN USER: INTERFACE SPEC #: [id number] PATIENT: MONICA SAGASTUME #[id number] (Continued) --- SYNOPTIC REPORT (Continued) MACROSCOPIC TUMOR [...] an addendum. - Signed SIGNATURE ON FILE DaniloselmaИрина L 10/01/19 1507 END OF REPORT SURGICAL 2019-10-01 SPECIMENS 15:07:00 RUN DATE: 12/16/19 [facility] - LAB PAGE 1 RUN TIME: 1159 Specimen Inquiry RUN USER: INTERFACE PATIENT: MONICA SAGASTUME LOC: [facility] POD B U #: [id number] AGE/SX: 69/M ROOM: [facility] RE09/28/19RONNELL DR: Franklin Brown MD : 51 BED: 1 DIS: 09/30/19 STATUS: DIS IN TLOC: SPEC #: [id number] RECD: 09/28/19-5204 STATUS: CONNIE RERe #: [id number] SHINE: 09/28/19-[address]: Franklin Brown MD ENTERED: 09/28/193463 SP TYPE: SURG OTHR DR: ORDERED: PATHGM4/4, PATHGM6, PATH SPEC, H E STAIN/5, FROZEN EA ADDTL, FROZEN SECT , GM/ HISTOLOGY: TISSUE ID BLK PCS JOAN LEV [...] Cancer (Permanent) ADDENDUM FINDINGS Addendum #2 Entered: 12/16/197914 The addendum is to document additional information [...] KavonreGustavoDalton grimaldoese 12/16/19 1159 Addendum #1 Entered: 10/22/199470 The purpose of this addendum is to report results of mismatch repair protein immunohistochemistry performed on block E8. For complete results, please see corresponding Integrated Oncology Report ([id number]). DIAGNOSIS: CONTINUED ON NEXT PAGE RUN DATE: 12/16/19 [facility] - LAB PAGE 2 RUN TIME: 1159 Specimen Inquiry RUN USER: INTERFACE SPEC #: [id number] PATIENT: MONICA SAGASTUME #[id number] (Continued) --- ADDENDUM FINDINGS (Continued) MLH1 - [...] CONTINUED ON NEXT PAGE RUN DATE: 12/16/19 [facility] - LAB PAGE 3 RUN TIME: 1159 Specimen Inquiry RUN USER: INTERFACE SPEC #: [id number] PATIENT: MONICA SAGASTUME #[id number] (Continued) --- FINAL DIAGNOSIS (Continued) addendum. INTRAOPERATIVE [...] CONTINUED ON NEXT PAGE RUN DATE: 12/16/19 [facility] - LAB PAGE 4 RUN TIME: 1159 Specimen Inquiry RUN USER: INTERFACE SPEC #: [id number] PATIENT: MONICA SAGASTUME CHRISTO #[id number] (Continued) --- GROSS DESCRIPTION (Continued) E. Received [...] nodes are identified within the adipose tissue. Starch Treating Assistant sections are submitted. INK CODE: Black - [...] CONTINUED ON NEXT PAGE RUN DATE: 12/16/19 [facility] - LAB PAGE 5 RUN TIME: 1159 Specimen Inquiry RUN USER: INTERFACE SPEC #: [id number] PATIENT: MONICA SAGASTUME #[id number] (Continued) --- GROSS DESCRIPTION (Continued) [id number] - [...] code = CA) 9.0 mg/dL 8.8-10.2 N [id number] 05:24:00 Test Item Value Reference Range Interpretation Comments MAGNESIUM (test code = MAG) 1.9 mg/dL 1.4-2.6 N CBC W/AUTO [id number] 05:14:00 Test Item Value Reference Range Interpretation [...] 0.02 x10 3/uL 0.0-0.20 N BASIC METABOLIC [id number] 06:40:00 Test Item Value Reference Range Interpretation [...] code 8.4 mg/dL 8.8-10.2 L = CA) [id number] 06:40:00 Test Item Value Reference Range Interpretation Comments MAGNESIUM (test code = MAG) 1.9 mg/dL 1.4-2.6 N CBC W/AUTO [id number] 06:06:00 Test Item Value Reference Range Interpretation [...] 0.04 x10 3/uL 0.0-0.20 N CBC W/AUTO [id number] 12:29:00 Test Item Value Reference Range Interpretation [...] 0.06 x10 3/uL 0.0-0.20 N COMPREHENSIVE METABOLIC [id number] 12:26:00 Test Item Value Reference Range Interpretation [...]
[2020-08-14] MEDS ORDERED: Ringers Lactate 1,000 ML IV ONE (08:32)
[2020-08-14 08:43] VITALS: O2SAT 97
[2020-08-14] MEDS: CEFAZOLIN/SWI 1gm 1 GM/10 ML SYR ONE ×2 (09:02→09:40)
[2020-08-14] MEDS ORDERED: MIDAZOLAM HCL 2 MG/2 ML INJ ONE (09:38)
[2020-08-14] MEDS ORDERED: propofoL 200 MG/20 ML VIAL IV ONE (09:38)
[2020-08-14] MEDS ORDERED: LIDOCAINE 1% MPF 5 ML VIAL ONE (09:38)
[2020-08-14] MEDS ORDERED: FENTANYL CITR 100 MCG/2 ML ONE (09:38)
[2020-08-14] MEDS ORDERED: LIDOCAINE 1% MPF 30 ML VIAL ONE (09:44)
[2020-08-14] MEDS ORDERED: KETOROLAC 30 MG/ML INJ ONE (09:56)
[2020-08-14] MEDS ORDERED: TRAMADOL 37.5mg/APAP 325mg PER TAB ONE (10:44)
--- NOTE | 2020-08-14 11:43 | OP ---
Date of Procedure: 08/14/2020 Surgeon: Myles Machuca MD Supervisor [employer]: WISAM Humphrey. Preoperative Diagnosis: Colon cancer. Postoperative Diagnosis: Colon cancer. Procedure: Removal of right chest Port-A-Cath. Estimated Blood Loss: Minimal. Specimen: Port-A-Cath device. Finding: Normal anatomy. Anesthesia: MAC. Complications: None. Disposition: The patient tolerated the procedure in stable condition and taken to Recovery in good g eneral condition. Description Of Procedure: The patient was brought to the OR and placed in supine position. General anesthesia began. The patient was prepped and draped in usual sterile fashion. Lidocaine 1% infiltr ated locally. A 15-blade was used to make a 3 cm incision over the right anterior chest over the Por t-A-Cath device. Subcutaneous was divided. Port-A-Cath device was identified free from surrounding tissue and dissected free with sharp and blunt dissection. Bleeding controlled with cautery and then 3-0 chromic used to approximate the subcutaneous tissue and close the skin. Sterile dressing was ap plied. Patient was awakened and taken to Recovery in good general condition. Discharge Note: The patient will go to Day Surgery and home when stable. Disposition: Home. Condition: Stable. Discharge Instructions: Resume home medications and diet. Activity as tolerated. No heavy lifting. Remove outer dressing in 2 days. Shower. Keep wound clean and dry. Keep Steri-Strips on at all t imes. Follow up in my office in 2 weeks. Call for appointment. Ultracet 1 tablet p.o. q.4 p.r.n. p ain. HURTADO/CORNELIO Voice ID: [id number] Report ID: [id number]
[2020-08-14 11:48] VITALS: BP 135/80; TEMP 98
== END 2020-08-14 10:50 | disposition home or self-care (01) ==
LOC: OR 07:41
PROVIDERS: ATTEND Surgery
PROC: 0JPT0WZ Removal of Totally Implantable Vascular Access Device from Trunk Subcutaneous Tissue and Fascia, Open Approach (ICD-10-PCS; principal; 2020-08-14 09:30)
DX: Z45.2 Encounter for adjustment and management of vascular access device (principal); C18.9 Malignant neoplasm of colon, unspecified; Z20.822 Contact with and (suspected) exposure to COVID-19
CPT/HCPCS: 85025; 36415; 88300; 36590; U0002; J2704; J2250; J3010; J0690; J7120

== ENCOUNTER 2024-05-17 10:11 | Day surgery (SDC) | payer OTHER ==
[2024-05-14 14:31] LABS: Absolute Eosinophils 0.1 K/uL (0-0.5); Absolute Lymphocytes (CBC) 1.1 K/uL (0.7-4.9); Absolute Monocytes 0.4 K/uL (0.1-1.3); Basophils % 0.8 % (0-1.3); Eosinophils % 1.1 % (0-4.4); Hematocrit 39.5 % (39.6-49.0); Hemoglobin 13.5 g/dL (13.6-17.9); Lymphocytes % 23.2 % (15.3-44.8); MCH 31.1 pg (27.0-35.0); MCHC 34.1 g/dL (32.0-36.0); MCV 91.2 fL (80-100); MPV 7.1 fL (7.6-11.3); Monocytes % 8.9 % (3.3-12.3); Nucleated Red Blood Cells % 0.2 % (0-0); Platelets 171 thou/uL (152-406); RBC Red Blood Cell Count 4.33 M/uL (4.33-5.43); Red Cell Distribution Width 15.6 % (12.1-15.2)
[2024-05-14 14:45] LABS: Anion Gap 8.8 mEq/L (5.0-15.0); Potassium 3.8 mEq/L (3.5-5.1)
[2024-05-17] MEDS ORDERED: GLYCOPYRROLATE 0.2 MG/ML SYR ONE (10:39)
[2024-05-17] MEDS: Ringers Lactate 1,000 ML IV ONE (10:50)
[2024-05-17] MEDS ORDERED: LIDOCAINE 1% MPF 5 ML VIAL ONE (11:59)
[2024-05-17] MEDS ORDERED: propofoL 200 MG/20 ML VIAL IV ONE ×2 (11:59→12:41)
--- NOTE | 2024-05-17 12:38 | EKG ---
Test Date: 2024-05-14 Test Time: 14:18:56 [facility]: ALFREDO MEASUREMENT RESULTS: Intervals: Rate: 69 AL: 130 QRSD: 90 QT: 398 QTc: 426 [place]: P: 38 AL: 130 QRS: 25 T: -1 INTERPRETIVE STATEMENTS: Normal sinus rhythm Minimal voltage criteria for LVH, may be normal variant Borderline ECG No previous ECG available for comparison Electronically Signed On 05-17-24 12:37:04 CDT by Mitch Mulligan
[2024-05-17] MEDS ORDERED: HYDRALAZINE HCL 20 MG/ML VIAL ONE (12:51)
[2024-05-17 14:50] VITALS: TEMP 97.7
[2024-05-17 14:51] VITALS: BP 143/78; O2SAT 100
== END 2024-05-17 13:42 | disposition home or self-care (01) ==
LOC: OR 10:11
PROVIDERS: ATTEND Surgery
PROC: 0DB48ZX Excision of Esophagogastric Junction, Via Natural or Artificial Opening Endoscopic, Diagnostic (ICD-10-PCS; 2024-05-17)
PROC: 0DBH8ZX Excision of Cecum, Via Natural or Artificial Opening Endoscopic, Diagnostic (ICD-10-PCS; 2024-05-17)
PROC: 0DB98ZX Excision of Duodenum, Via Natural or Artificial Opening Endoscopic, Diagnostic (ICD-10-PCS; principal; 2024-05-17 12:00)
PROC: 0DB78ZX Excision of Stomach, Pylorus, Via Natural or Artificial Opening Endoscopic, Diagnostic (ICD-10-PCS; 2024-05-17 12:00)
DX: R19.7 Diarrhea, unspecified (principal); R19.8 Other specified symptoms and signs involving the digestive system and abdomen; F98.1 Encopresis not due to a substance or known physiological condition; K21.9 Gastro-esophageal reflux disease without esophagitis; K64.8 Other hemorrhoids; K63.89 Other specified diseases of intestine; R13.19 Other dysphagia; R10.13 Epigastric pain; K57.11 Diverticulosis of small intestine without perforation or abscess with bleeding; K44.9 Diaphragmatic hernia without obstruction or gangrene; K31.9 Disease of stomach and duodenum, unspecified; K29.50 Unspecified chronic gastritis without bleeding; K63.5 Polyp of colon; Z85.038 Personal history of other malignant neoplasm of large intestine; Z90.49 Acquired absence of other specified parts of digestive tract
CPT/HCPCS: 43239; 93005; 85025; 80048; 36415; 88312; 88305; 45380; J0360; J2704 ×2; J2003; J7120